=== PATIENT | female | born 1960 | race Caucasian/White ===

== ENCOUNTER 2016-06-09 07:04 | Emergency (ER) | payer OTHER ==
[~2016-06-09] VITALS: Ht 154.9 cm; Wt 63.5 kg
[2016-06-09 07:18] VITALS: BP 146/77; PULSE 91; RESP 16; TEMP 97; O2SAT 97
--- NOTE | 2016-06-09 07:25 | NUR ---
Patient to ER bed 7 to gown for evaluation. Side rails up. ASSUMED CARE OF THE PT
--- NOTE | 2016-06-09 07:45 | NUR ---
ER at bedside examining patient.
--- NOTE | 2016-06-09 07:45 | NUR ---
dr ortiz applying dermabond on pt.
--- NOTE | 2016-06-09 08:08 | NUR ---
Patient given written and verbal discharge instructions and verbalizes understanding. ER MD discussed with patient the results and treatment provided. Patient in stable condition. ID arm band removed. No Rx given. Patient educated on pain management and to follow up with PMD. Pain Scale 0/10. Opportunity for questions provided and answered.
[2016-06-09 08:11] VITALS: BP 143/72; PULSE 84; RESP 16; TEMP 97; O2SAT 99
== END 2016-06-09 08:10 | disposition home or self-care (01) ==
LOC: SED 07:04
DX: S61.011A Laceration without foreign body of right thumb without damage to nail, initial encounter (principal); E11.9 Type 2 diabetes mellitus without complications; I10 Essential (primary) hypertension; W25.XXXA Contact with sharp glass, initial encounter; Y93.G1 Activity, food preparation and clean up; Y92.9 Unspecified place or not applicable; Y99.8 Other external cause status
CPT/HCPCS: 99283